=== PATIENT | male | born 1975 | race African-American/Black ===

== ENCOUNTER 2016-11-17 20:40 | Emergency (ER) | payer SELFPAY ==
[~2016-11-17] VITALS: Ht 180.3 cm; Wt 110.0 kg
[~2016-11-17 20:40] MED LIST: ALBU8I INH; PRED50TA PO
[2016-11-17 20:43] VITALS: BP 200/116; PULSE 81; RESP 20; TEMP 97.5; O2SAT 95
[2016-11-17 22:05] VITALS: BP 179/116; PULSE 73; RESP 20; O2SAT 98
[2016-11-17 22:10] VITALS: O2SAT 98
[2016-11-17] MEDS ORDERED: methylPREDNISolone SOD SUCC 125 MG/2 ML VIAL IVP ONE (22:30)
[2016-11-17] MEDS ORDERED: SODIUM CHLORIDE 0.9% FLUSH 5 ML FLUSH IVF PRN (22:30)
[2016-11-17] MEDS: RESP: ALBUTEROL 2.5 MG/IPRATROPIUM 0.5 MG NEB (SCH) INH ×2 (22:41→22:51)
[2016-11-17 22:46] LABS: AUTOMATED NEUTROPHIL # 4.1 TH/MM3 (1.8-7.7); BASOPHIL % 0.6 % (0.0-2.0); EOSINOPHIL # 0.4 TH/MM3 (0-0.4); EOSINOPHIL % 5.2 % (0.0-4.0); HEMATOCRIT 40.2 % (39.0-51.0); HEMO FLAGS DIFF FINAL; LYMPH % 31.6 % (9.0-44.0); LYMPHOCYTE # 2.3 TH/MM3 (1.0-4.8); MEAN CELL VOLUME 82.4 FL (80.0-100.0); MEAN CORPUSCULAR HEMOGLOBIN 28.1 PG (27.0-34.0); MEAN CORPUSCULAR HGB CONC 34.1 % (32.0-36.0); MONO % 7.2 % (0.0-8.0); NEUT % 55.4 % (16.0-70.0); PLATELET COUNT 229 TH/MM3 (150-450); RED BLOOD COUNT 4.88 MIL/MM3 (4.50-5.90); RED CELL DISTRIBUTION WIDTH 13.7 % (11.6-17.2); WHITE BLOOD COUNT 7.3 TH/MM3 (4.0-11.0)
--- NOTE | 2016-11-17 22:50 | RADRPT ---
EXAM DATE/TIME: 11/17/2016 22:28 [place] COMPARISON: CHEST SINGLE AP, January 07, 2016, 9:46. INDICATIONS : Chest pain, shortness of breath. MEDICAL HISTORY : Hypertension. Asthma, smoker. SURGICAL HISTORY : None. ENCOUNTER: Initial ACUITY: 4 - 6 days PAIN SCORE: 8/10 LOCATION: Left chest FINDINGS: A single view of the chest demonstrates minimal increased density at the right base. The left lung is clear. No effusion is seen. The cardiomediastinal contours are unremarkable. Osseous structures ar e intact. CONCLUSION: Suspected minimal consolidation or atelectasis at the right base. Carloz Garza MD on November 17, 2016 at 22:47 Board Certified Radiologist. This report was verified electronically.
[2016-11-17 22:58] LABS: ANION GAP 11 MEQ/L (5-15); BICARBONATE 24.1 MEQ/L (21.0-32.0); BLOOD UREA NITROGEN 20 MG/DL (7-18); CHLORIDE 102 MEQ/L (98-107); GLOMERULAR FILTRATION RATE 89 ML/MIN (>89); POTASSIUM 3.9 MEQ/L (3.5-5.1); SODIUM (NA) 137 MEQ/L (136-145)
[2016-11-17 23:00] LABS: APTT (PATIENT) 27.7 SEC (24.3-30.1); PROTHROMBIN TIME - PATIENT 10.7 SEC (9.8-11.6)
[2016-11-17 23:03] LABS: CREATINE KINASE 422 U/L (39-308)
[2016-11-17 23:15] LABS: CKMB 3.6 NG/ML (0.5-3.6)
--- NOTE | 2016-11-17 23:23 | PD ---
HPI Chief Complaint: Respiratory Symptoms Time Seen by Provider: 22:18 Travel History International Travel<30 days: No Contact w/Intl Traveler<30days: No Traveled to known affect area: No History of Present Illness HPI 41yo M with PMH of asthma and HTN presents to the ED with c/o sob for a few days. States he does not have his asthma pump at home and this feels like his asthma. +Cough. Denies any fever, chest pain, n/v, abdominal pain. Pt does not take any medication for his HTN as well and takes garlic pills at nutrition store for it. PFSH Past Medical History Asthma: Yes Diminished Hearing: No Hypertension: Yes Respiratory: Yes (ASTHMA) Immunizations Current: Yes Tetanus Vaccination: Never Vaccinated Influenza Vaccination: No Social History Alcohol Use: Yes (2 beers per day) Tobacco Use: Yes (1 PPD) Substance Use: No Allergies-Medications (Allergen,Severity, Reaction): Coded Allergies: No Known Allergies (Unverified , 11/17/16) Reported Meds & Prescriptions Reported Meds & Active Scripts Active Amlodipine (Amlodipine Besylate) 10 Mg Tab 10 Mg PO DAILY 14 Days Zithromax Z-Miguel (Azithromycin) 250 Mg Dspk 250 Mg PO DIRECTED 500 MG (2 tabs) day 1, then 1 tab days 2-5. Ventolin Hfa 18 GM Inh (Albuterol Sulfate) 90 Mcg/Act Aer 2 Puff INH Q4H PRN Prednisone 20 Mg Tab 20 Mg PO BID 5 Days Review of Systems Except as stated in HPI: all other systems reviewed are Neg Physical Exam Narrative GENERAL: 41yo M not in distress. SKIN: Warm and dry. HEAD: Atraumatic. Normocephalic. EYES: Pupils equal and round. No scleral icterus. No injection or drainage. ENT: No nasal bleeding or discharge. Mucous membranes pink and moist. NECK: Trachea midline. No JVD. CARDIOVASCULAR: Regular rate and rhythm. No murmur appreciated. RESPIRATORY: No accessory muscle use. End expiratory wheezing right lower lobe. GASTROINTESTINAL: Abdomen soft, non-tender, nondistended. Hepatic and splenic margins not palpable. MUSCULOSKELETAL: No obvious deformities. No clubbing. No cyanosis. +Trace bilateral lower ext edema. NEUROLOGICAL: Awake and alert. No obvious cranial nerve deficits. Motor grossly within normal limits. Normal speech. PSYCHIATRIC: Appropriate mood and affect; insight and judgment normal. Data Data Last Documented VS Vital Signs Date Time Temp Pulse Resp B/P Pulse Ox O2 Delivery O2 Flow Rate FiO2 11/18/16 02:00 84 20 161/90 99 Room Air 11/17/16 22:10 2 11/17/16 20:43 97.5 Orders Complete Blood Count With Diff (11/17/16 22:19) Basic Metabolic Panel (Bmp) (11/17/16 22:19) D-Dimer (11/17/16 22:19) Act Partial Throm Time (Ptt) (11/17/16 22:19) Prothrombin Time / Inr (Pt) (11/17/16 22:19) Ckmb (Isoenzyme) Profile (11/17/16 22:19) Troponin I (11/17/16 22:19) Iv Access Insert/Monitor (11/17/16 22:19) Ecg Monitoring (11/17/16 22:19) Oximetry (11/17/16 22:19) Oxygen Administration (11/17/16 22:19) Chest, Single Ap (11/17/16 22:19) Sodium Chloride 0.9% Flush (Ns Flush) (11/17/16 22:30) Methylprednisolone So Succ Inj (Solumedr (11/17/16 22:30) Albuterol-Ipratropium Neb (Duoneb Neb) (11/17/16 22:30) CKMB (11/17/16 22:10) CKMB% (11/17/16 22:10) Hydralazine Inj (Apresoline Inj) (11/18/16 00:30) Clonidine (Catapres) (11/18/16 01:15) Hydralazine Inj (Apresoline Inj) (11/18/16 02:00) Clonidine (Catapres) (11/18/16 02:00) Electrocardiogram (11/18/16 22:06) Labs Laboratory Tests Test 11/17/16 22:10 White Blood Count 7.3 TH/MM3 Red Blood Count 4.88 MIL/MM3 Hemoglobin 13.7 GM/DL Hematocrit 40.2 % Mean Corpuscular Volume 82.4 FL Mean Corpuscular Hemoglobin 28.1 PG Mean Corpuscular Hemoglobin 34.1 % Concent Red Cell Distribution Width 13.7 % Platelet Count 229 TH/MM3 Mean Platelet Volume 8.2 FL Neutrophils (%) (Auto) 55.4 % Lymphocytes (%) (Auto) 31.6 % Monocytes (%) (Auto) 7.2 % Eosinophils (%) (Auto) 5.2 % Basophils (%) (Auto) 0.6 % Neutrophils # (Auto) 4.1 TH/MM3 Lymphocytes # (Auto) 2.3 TH/MM3 Monocytes # (Auto) 0.5 TH/MM3 Eosinophils # (Auto) 0.4 TH/MM3 Basophils # (Auto) 0.0 TH/MM3 CBC Comment DIFF FINAL Differential Comment Prothrombin Time 10.7 SEC Prothromb Time International 1.0 RATIO Ratio Activated Partial 27.7 SEC Thromboplast Time D-Dimer Quantitative (PE/DVT) 0.48 MG/L FEU Sodium Level 137 MEQ/L Potassium Level 3.9 MEQ/L Chloride Level 102 MEQ/L Carbon Dioxide Level 24.1 MEQ/L Anion Gap 11 MEQ/L Blood Urea Nitrogen 20 MG/DL Creatinine 1.11 MG/DL Estimat Glomerular Filtration 89 ML/MIN Rate Random Glucose 75 MG/DL Calcium Level 8.7 MG/DL Total Creatine Kinase 422 U/L Creatine Kinase MB 3.6 NG/ML Creatine Kinase MB % 0.9 % Troponin I LESS THAN 0.02 NG/ML MDM Medical Decision Making Medical Screen Exam Complete: Yes Emergency Medical Condition: Yes Interpretation(s) EKG: NSR 70bpm with borderline first degree AV block. No signs of ischemia. Laboratory Tests Test 11/17/16 22:10 White Blood Count 7.3 TH/MM3 (4.0-11.0) Red Blood Count 4.88 MIL/MM3 (4.50-5.90) Hemoglobin 13.7 GM/DL (13.0-17.0) Hematocrit 40.2 % (39.0-51.0) Mean Corpuscular Volume 82.4 FL (80.0-100.0) Mean Corpuscular Hemoglobin 28.1 PG (27.0-34.0) Mean Corpuscular Hemoglobin 34.1 % Concent (32.0-36.0) Red Cell Distribution Width 13.7 % (11.6-17.2) Platelet Count 229 TH/MM3 (150-450) Mean Platelet Volume 8.2 FL (7.0-11.0) Neutrophils (%) (Auto) 55.4 % (16.0-70.0) Lymphocytes (%) (Auto) 31.6 % (9.0-44.0) Monocytes (%) (Auto) 7.2 % (0.0-8.0) Eosinophils (%) (Auto) 5.2 % (0.0-4.0) Basophils (%) (Auto) 0.6 % (0.0-2.0) Neutrophils # (Auto) 4.1 TH/MM3 (1.8-7.7) Lymphocytes # (Auto) 2.3 TH/MM3 (1.0-4.8) Monocytes # (Auto) 0.5 TH/MM3 (0-0.9) Eosinophils # (Auto) 0.4 TH/MM3 (0-0.4) Basophils # (Auto) 0.0 TH/MM3 (0-0.2) CBC Comment DIFF FINAL Differential Comment Prothrombin Time 10.7 SEC (9.8-11.6) Prothromb Time International 1.0 RATIO Ratio Activated Partial 27.7 SEC Thromboplast Time (24.3-30.1) D-Dimer Quantitative (PE/DVT) 0.48 MG/L FEU (0.00-0.50) Sodium Level 137 MEQ/L (136-145) Potassium Level 3.9 MEQ/L (3.5-5.1) Chloride Level 102 MEQ/L (98-107) Carbon Dioxide Level 24.1 MEQ/L (21.0-32.0) Anion Gap 11 MEQ/L (5-15) Blood Urea Nitrogen 20 MG/DL (7-18) Creatinine 1.11 MG/DL (0.60-1.30) Estimat Glomerular Filtration 89 ML/MIN (>89) Rate Random Glucose 75 MG/DL (74-106) Calcium Level 8.7 MG/DL (8.5-10.1) Total Creatine Kinase 422 U/L (39-308) Creatine Kinase MB 3.6 NG/ML (0.5-3.6) Creatine Kinase MB % 0.9 % (0.0-4.0) Troponin I LESS THAN 0.02 NG/ML (0.02-0.05) Last Impressions Chest X-Ray 11/17/16 5256 Signed Impressions: Service Date/Time: Thursday, November 17, 2016 22:28 - CONCLUSION: Suspected minimal consolidation or atelectasis at the right base. Carloz Garza MD Differential Diagnosis Asthma exacerbation vs. PNA vs. Bronchitis vs. PE (low suspicion, will r/o with D-dimer) Narrative Course 41yo M with asthma here with sob for a few days. States he was wheezing at home and ran out of his pump. States his baby is also sick. Pt is a well appearing 41yo M with mild end expiratory wheezing in right lower lung. Pt does have history of elevated blood pressure but does not take any actual antihypertensives. Will give hydralazine 10mg IV. Labs reviewed, no leukocytosis. Troponin negative. D-dimer negative, r/o PE. CXR showed minimal consolidation or atelectasis at right base. Will give azithromycin prescription. Pt given duonebs and methylprednisolone 125mg IV and feels better. Diagnosis Primary Impression: Asthma exacerbation Additional Impression: Elevated blood pressure reading Patient Instructions: General Instructions Departure Forms: Tests/Procedures Additional Instructions: Please follow up with PMD in 3-7 days for your elevated blood pressure and your asthma. Return to the ED if symptoms worsen. Med/Other Pt SpecificInfo: Prescription(s) given Scripts Amlodipine 10 Mg Tab10 Mg PO DAILY 14 Days Ref 0 Prov:Tanya Craft DO 11/18/16 Azithromycin (Zithromax Z-Miguel)250 Mg [id number] Mg PO DIRECTED #1 DSPK Ref 0 500 MG (2 tabs) day 1, then 1 tab days 2-5. Prov:Tanya Craft DO 11/18/16 Albuterol 18 GM Inh (Ventolin Hfa 18 GM Inh)90 Mcg/Act Aer2 Puff INH Q4H PRN ( SHORTNESS OF BREATH) #1 INHALER Ref 0 Prov:Tanya Craft DO 11/18/16 Prednisone 20 Mg Tab20 Mg PO BID 5 Days Ref 0 Prov:Tanya Craft DO 11/18/16 Disposition: 01 DISCHARGE HOME Condition: Stable Tanya Craft DO Nov 17, 2016 23:23
[2016-11-18] MEDS ORDERED: hydrALAZINE HCL 20 MG/ML VIAL IV PUSH ONE ×2 (00:30→02:00)
[2016-11-18] MEDS ORDERED: VENTAER INH (00:36)
[2016-11-18] MEDS ORDERED: PRED20 PO (00:36)
[2016-11-18] MEDS ORDERED: LISI10TA3 PO (00:36)
[2016-11-18] MEDS ORDERED: ZITHTAB PO (00:36)
[2016-11-18 01:00] VITALS: BP 174/119; PULSE 85; RESP 20; O2SAT 99
[2016-11-18] MEDS ORDERED: AMLO10TA2 PO (01:12)
[2016-11-18] MEDS ORDERED: cloNIDine HCL 0.1 MG TAB PO ONE ×2 (01:15→02:00)
[2016-11-18 02:00] VITALS: BP 161/90; PULSE 84; RESP 20; O2SAT 99
--- NOTE | 2016-11-18 16:01 | EKG ---
Date Performed: 11/17/2016 Time Performed: 22:06:54 PTAGE: 41 years EKG: Sinus rhythm WITH FIRST DEGREE AV BLOCK Compared to prior tracing no significant change ABNORMAL ECG NO PREVIOUS TRACING DOCTOR: Nicolas Avila Interpretating Date/Time 11/18/2016 15:57:16
== END 2016-11-18 02:00 | disposition home or self-care (01) ==
LOC: NEPA 20:40
DX: J45.901 Unspecified asthma with (acute) exacerbation (principal); R03.0 Elevated blood-pressure reading, without diagnosis of hypertension; R94.31 Abnormal electrocardiogram [ECG] [EKG]; R05 Cough; I10 Essential (primary) hypertension; F17.210 Nicotine dependence, cigarettes, uncomplicated
CPT/HCPCS: 71010; 80048; 82550; 82552; 84484; 85025; 85379; 85610; 85730; 93005; 94640; 94664; 96374; 96375; 99283; J0360; J2930

== ENCOUNTER 2017-01-14 15:21 | Emergency (ER) | payer SELFPAY ==
[~2017-01-14] VITALS: Ht 180.3 cm; Wt 110.0 kg
[~2017-01-14 15:21] MED LIST changes: -ALBU8I INH; +AMLO10TA2 PO; +PRED20 PO; -PRED50TA PO; +VENTAER INH; +ZITHTAB PO
[2017-01-14 15:23] VITALS: BP 162/93; PULSE 80; RESP 15; TEMP 97.9; O2SAT 96
--- NOTE | 2017-01-14 15:46 | PD ---
Physical Exam Date Seen by Provider: Jan 14, 2017 Time Seen by Provider: 15:41 Narrative Patient seen in triage for Skin Lesion on Right dorsal proximal forearm for the past 14 days. Patient states it started as a pimple and has gotten bigger and bigger. Patient states he has "drained" it twice himself, but it comes back. Patient has no Hx. MRSA. Patient denies Fever or chills. Vital Signs Stable. Patient awaiting bed placement. Data Data Last Documented VS Vital Signs Date Time Temp Pulse Resp B/P Pulse Ox O2 Delivery O2 Flow Rate FiO2 01/14/17 15:23 97.9 80 15 162/93 96 MDM Medical Record Reviewed: Yes Supervised Visit with SYDNEY: Yes Condition: Stable Teofilo Blanton Jan 14, 2017 15:46
[2017-01-14] MEDS ORDERED: IBUP800T23 PO (16:18)
[2017-01-14] MEDS ORDERED: CEPH-460 PO (16:18)
[2017-01-14] MEDS ORDERED: BACT800T5 PO (16:18)
--- NOTE | 2017-01-14 16:18 | PD ---
HPI Chief Complaint: Skin Problem Time Seen by Provider: 16:16 Travel History International Travel<30 days: No Contact w/Intl Traveler<30days: No Traveled to known affect area: No History of Present Illness HPI 41-year-old male presents to the emergency Department with complaint of an abscess to his right forearm that has been there for about 2 weeks. He said it has been draining purulent drainage but it has not gone away completely. He denies paresthesias, loss of sensation, decreased range of motion, decreased strength to the affected extremity. Denies fever, chills, nausea, vomiting. Has not taken any medications to alleviate his symptoms. Has squeezed it to get drainage to come out. No known allergies. No other modifying factors or associated signs and symptoms. PFSH Past Medical History Asthma: Yes Diminished Hearing: No Hypertension: Yes Respiratory: Yes (ASTHMA) Immunizations Current: Yes Social History Alcohol Use: Yes (2 beers per day) Tobacco Use: Yes (1 PPD) Substance Use: No Allergies-Medications (Allergen,Severity, Reaction): Coded Allergies: No Known Allergies (Unverified , 11/17/16) Reported Meds & Prescriptions Reported Meds & Active Scripts Active Ibuprofen 800 Mg Tab 800 Mg PO Q6HR PRN Bactrim DS (Sulfamethoxazole-Trimethoprim) 800-160 Mg Tab 1 Tab PO BID 10 Days Keflex (Cephalexin) 500 Mg Cap 500 Mg PO Q6H 10 Days Amlodipine (Amlodipine Besylate) 10 Mg Tab 10 Mg PO DAILY 14 Days Zithromax Z-Miguel (Azithromycin) 250 Mg Dspk 250 Mg PO DIRECTED 500 MG (2 tabs) day 1, then 1 tab days 2-5. Ventolin Hfa 18 GM Inh (Albuterol Sulfate) 90 Mcg/Act Aer 2 Puff INH Q4H PRN Prednisone 20 Mg Tab 20 Mg PO BID 5 Days Review of Systems Except as stated in HPI: all other systems reviewed are Neg Physical Exam Narrative GENERAL: Well-nourished, well-developed patient, in no acute distress; afebrile , nontoxic-appearing SKIN: There is an indurated area to the right proximal forearm which measures about 1.5 cm in diameter. It is fluctuant and there is pointing [place] and drainage. There is a zone of inflammation around it but no lymphangitis. Right upper extremity supple and non-tense with 2+ radial pulses and sensory intact and without erythema or edema. HEAD: Atraumatic. Normocephalic. EYES: Pupils equal and round. No scleral icterus. No injection or drainage. ENT: Mucosa pink and moist. Airway patent. NECK: Trachea midline. CARDIOVASCULAR: Regular rate. RESPIRATORY: No accessory muscle use. GASTROINTESTINAL: Rounded. MUSCULOSKELETAL: No obvious deformities. No clubbing. No cyanosis. No edema. NEUROLOGICAL: Awake and alert. Oriented 3. No obvious cranial nerve deficits. Motor grossly within normal limits. Normal speech. PSYCHIATRIC: Appropriate mood and affect; insight and judgment normal. Data Data Last Documented VS Vital Signs Date Time Temp Pulse Resp B/P Pulse Ox O2 Delivery O2 Flow Rate FiO2 01/14/17 15:23 97.9 80 15 162/93 96 Orders Wound Culture And Gram Stain (01/14/17 16:18) [facility] Medical Decision Making Medical Screen Exam Complete: Yes Emergency Medical Condition: Yes Medical Record Reviewed: Yes Differential Diagnosis Cellulitis, folliculitis, abscess Narrative Course 41-year-old male with an abscess that is draining purulent drainage to his right proximal forearm. Wound culture pending. Patient is afebrile and nontoxic-appearing. He denies fever, chills, nausea, vomiting. Is up-to-date on his tetanus vaccination. Abscess squeezed and drained in the ER. Bactrim, Keflex, ibuprofen prescribed for home. Diagnosis Primary Impression: Abscess of right forearm Referrals: Primary Care Physician Patient Instructions: Abscess (ED), Abscess Follow-up (ED), General Instructions Departure Forms: Tests/Procedures, Work Release Enter return to work date: Jan 15, 2017 Additional Instructions: Complete full course of antibiotics Warm compresses to the affected area Keep area clean and dry Ibuprofen or Tylenol as directed and as needed for pain and inflammation Follow-up with primary care provider Return to emergency department immediately with worsening of symptoms Med/Other Pt SpecificInfo: Prescription(s) given Scripts Ibuprofen 800 Mg [id number] Mg PO Q6HR PRN (PAIN) #30 TAB Ref 0 Prov:Jerica Olivares GRAPPLE SKIDDER OPERATOR 01/14/17 Sulfamethoxazole-Trimethoprim (Bactrim DS)800-160 Mg Tab1 Tab PO BID 10 Days Ref 0 Prov:Jerica Olivares GRAPPLE SKIDDER OPERATOR 01/14/17 Cephalexin (Keflex)500 Mg [id number] Mg PO Q6H 10 Days Ref 0 Prov:Jerica Olivares 01/14/17 Disposition: 01 DISCHARGE HOME Condition: Stable Jerica Olivares Jan 14, 2017 16:18
== END 2017-01-14 17:57 | disposition home or self-care (01) ==
LOC: NETRI 15:21
DX: L02.413 Cutaneous abscess of right upper limb (principal); I10 Essential (primary) hypertension; F17.210 Nicotine dependence, cigarettes, uncomplicated
CPT/HCPCS: 86403; 87070; 87186; 99283

== ENCOUNTER 2017-01-24 22:15 | Emergency (ER) | payer SELFPAY ==
[~2017-01-24] VITALS: Ht 180.3 cm; Wt 110.0 kg
[~2017-01-24 22:15] MED LIST changes: +BACT800T5 PO; +CEPH-460 PO; +IBUP800T23 PO
[2017-01-24 22:20] VITALS: BP 181/113; PULSE 82; RESP 16; TEMP 99.1; O2SAT 95
[2017-01-25] MEDS ORDERED: VENTAER INH (00:26)
[2017-01-25] MEDS ORDERED: PRED20 PO (00:26)
--- NOTE | 2017-01-25 00:29 | PD ---
HPI Chief Complaint: Respiratory Symptoms Time Seen by Provider: 00:20 Travel History International Travel<30 days: No Contact w/Intl Traveler<30days: No Traveled to known affect area: No History of Present Illness HPI 41-year-old male with history of asthma presents for evaluation of an asthma exacerbation. Symptoms started 2 days ago. He reports wheezing, cough with clear colored sputum. He reports that he typically uses his albuterol inhaler when he has asthma exacerbations but he is about to run out and this prompted evaluation. He denies any fevers or chills, rash or recent travel, no sick contacts. He reports that he moved here from [facility] 2 years ago, he feels that the humidity in the air has caused him to have more frequent asthma exacerbations. PFSH Past Medical History Asthma: Yes Diminished Hearing: No Hypertension: Yes Respiratory: Yes (ASTHMA) Immunizations Current: Yes Past Surgical History Surgical History: No Previous Surgery Social History Alcohol Use: Yes (6PACK DAILY) Tobacco Use: Yes (5 CIGS DAILY) Substance Use: No Allergies-Medications (Allergen,Severity, Reaction): Coded Allergies: *MDRO Multi-Drug Resistant Organism (Verified Adverse Reaction, Unknown, ) MRSA (arm wound) - 01/14/17 Reported Meds & Prescriptions Reported Meds & Active Scripts Active Prednisone 20 Mg Tab 20 Mg PO BID 5 Days Ventolin Hfa 18 GM Inh (Albuterol Sulfate) 90 Mcg/Act Aer 2 Puff INH Q4H PRN Ibuprofen 800 Mg Tab 800 Mg PO Q6HR PRN Bactrim DS (Sulfamethoxazole-Trimethoprim) 800-160 Mg Tab 1 Tab PO BID 10 Days Keflex (Cephalexin) 500 Mg Cap 500 Mg PO Q6H 10 Days Amlodipine (Amlodipine Besylate) 10 Mg Tab 10 Mg PO DAILY 14 Days Zithromax Z-Miguel (Azithromycin) 250 Mg Dspk 250 Mg PO DIRECTED 500 MG (2 tabs) day 1, then 1 tab days 2-5. Prednisone 20 Mg Tab 20 Mg PO BID 5 Days Review of Systems Except as stated in HPI: all other systems reviewed are Neg Physical Exam Narrative GENERAL: Well-developed well-nourished male in no acute distress SKIN: Warm and dry. HEAD: Atraumatic. Normocephalic. EYES: Pupils equal and round. No scleral icterus. No injection or drainage. ENT: No nasal bleeding or discharge. Mucous membranes pink and moist. NECK: Trachea midline. No JVD. CARDIOVASCULAR: Regular rate and rhythm. No murmur appreciated. RESPIRATORY: No accessory muscle use. Scattered wheezing bilaterally with prolonged expiratory phase. No tachypnea. Speaks in complete and clear sentences. Data Data Last Documented VS Vital Signs Date Time Temp Pulse Resp B/P Pulse Ox O2 Delivery O2 Flow Rate FiO2 01/24/17 22:20 99.1 82 16 181/113 95 Room Air Orders Prednisone (Deltasone) (01/25/17 00:30) Albuterol-Ipratropium Neb (Duoneb Neb) (01/25/17 00:30) [facility] Medical Decision Making Medical Screen Exam Complete: Yes Emergency Medical Condition: Yes Medical Record Reviewed: Yes Differential Diagnosis Asthma exacerbation, bronchitis, pneumonia, reactive airway disease, spontaneous pneumothorax Narrative Course 41-year-old male with history of asthma presents with 2 days of wheezing and cough consistent with previous asthma exacerbations. Examination is consistent with a asthma exacerbation. He will be discharged with a refill of his albuterol inhaler as well as a short prescription of prednisone. He will be given DuoNeb therapy and prednisone. He is stable for discharge. Diagnosis Primary Impression: Asthma exacerbation Additional Instructions: Medication as prescribed. Avoid tobacco products. Establish care with primary care physician for follow-up purposes. Return for any emergent medical conditions. Med/Other Pt SpecificInfo: Prescription(s) given Scripts Prednisone 20 Mg Tab20 Mg PO BID 5 Days Ref 0 Prov:Nasrin Mosley MD 01/25/17 Albuterol 18 GM Inh (Ventolin Hfa 18 GM Inh)90 Mcg/Act Aer2 Puff INH Q4H PRN ( SHORTNESS OF BREATH) #1 INHALER Ref 0 Prov:Nasrin Mosley MD 01/25/17 Disposition: DISCHARGE HOME Condition: Stable Mahin Triana Jan 25, 2017 00:29
[2017-01-25] MEDS ORDERED: predniSONE 20 MG TAB PO ONE (00:30)
[2017-01-25] MEDS: RESP: ALBUTEROL 2.5 MG/IPRATROPIUM 0.5 MG NEB (SCH) INH ×3 (00:45→01:21)
[2017-01-25 01:23] VITALS: O2SAT 98
[2017-01-25] MEDS ORDERED: PSEUDOEPHEDRINE HCL 30 MG TAB PO ONE (02:00)
[2017-01-25] MEDS ORDERED: RESP: ALBUTEROL 2.5 MG/IPRATROPIUM 0.5 MG NEB (SCH) INH ONE (02:00)
== END 2017-01-25 03:48 | disposition home or self-care (01) ==
LOC: NEPK 22:15
DX: J45.901 Unspecified asthma with (acute) exacerbation (principal); J45.909 Unspecified asthma, uncomplicated; I10 Essential (primary) hypertension; F17.210 Nicotine dependence, cigarettes, uncomplicated; Z79.899 Other long term (current) drug therapy
CPT/HCPCS: 94640; 94664; 99283; J7512

== ENCOUNTER 2017-02-23 19:13 | Emergency (ER) | payer SELFPAY ==
[~2017-02-23] VITALS: Ht 180.3 cm; Wt 110.0 kg
[2017-02-23 19:16] VITALS: BP 168/100; PULSE 90; RESP 16; TEMP 98.5; O2SAT 97
--- NOTE | 2017-02-23 19:45 | PD ---
HPI Chief Complaint: Complaint Time Seen by Provider: 19:42 Travel History International Travel<30 days: No Contact w/Intl Traveler<30days: No Traveled to known affect area: No History of Present Illness HPI 41-year-old black male presents to emergency department for evaluation of any STD exposure. He states that he had unprotected intercourse with a female approximately 2 weeks ago. The patient states that he was informed that she had chlamydia and Trichomonas. He denies any urethral symptoms. No dysuria or frequency. No urethral discharge. No rashes or lesions. He does state that he has a few what he feels or skin tags on his perineum by the base of his penis. History Past Medical Histgory Medical History: Denies Significant Hx Tetanus Vaccination: Unknown Past Surgical History Surgical History: No Previous Surgery Social History Alcohol Use: Yes (6PACK DAILY) Tobacco Use: Yes (5 CIGS DAILY) Allergies-Medications (Allergen,Severity, Reaction): Coded Allergies: *MDRO Multi-Drug Resistant Organism (Verified Adverse Reaction, Unknown, ) MRSA (arm wound) - 01/14/17 Reported Meds & Prescriptions Reported Meds & Active Scripts Active Prednisone 20 Mg Tab 20 Mg PO BID 5 Days Ventolin Hfa 18 GM Inh (Albuterol Sulfate) 90 Mcg/Act Aer 2 Puff INH Q4H PRN Ibuprofen 800 Mg Tab 800 Mg PO Q6HR PRN Bactrim DS (Sulfamethoxazole-Trimethoprim) 800-160 Mg Tab 1 Tab PO BID 10 Days Keflex (Cephalexin) 500 Mg Cap 500 Mg PO Q6H 10 Days Amlodipine (Amlodipine Besylate) 10 Mg Tab 10 Mg PO DAILY 14 Days Zithromax Z-Miguel (Azithromycin) 250 Mg Dspk 250 Mg PO DIRECTED 500 MG (2 tabs) day 1, then 1 tab days 2-5. Prednisone 20 Mg Tab 20 Mg PO BID 5 Days Review of Systems Except as stated in HPI: all other systems reviewed are Neg Genitourinary: No: Urgency, Frequency, Dysuria, Nocturia, Hematuria, Discharge Musculoskeletal: No: Arthralgias, Pain Skin: Positive Rash Neurologic: No: Weakness, Dizziness Physical Exam Narrative GENERAL: This is a well-nourished, well-developed patient, in no apparent distress. SKIN: No rashes, ecchymoses or lesions. Warm and dry. HEAD: Atraumatic. Normocephalic. EYES: PERRL, EOMI, no discharge or injection. No scleral icterus. EARS: Clear NOSE: Nasal turbinates appear normal. THROAT: Mucosa pink and moist. Airway patent. NECK: Trachea midline. supple, moves head freely. LUNGS: Clear to auscultation. CV: Regular in rhythm. ABDOMEN: Soft nontender. EXT: No clubbing cyanosis or edema. GENITOURINARY: Circumcised. Testes descended bilaterally without evidence of rotation. No erythema. No urethral discharge. Patient does have a few warty- appearing lesions to the perineum just lateral left to the shaft of the penis. These are consistent with genital warts Data Data Last Documented VS Vital Signs Date Time Temp Pulse Resp B/P Pulse Ox O2 Delivery O2 Flow Rate FiO2 02/23/17 19:16 98.5 90 16 168/100 97 Room Air MDM Medical Screen Exam Complete: Yes Emergency Medical Condition: No Differential Diagnosis MDM: Moderate Differential diagnoses: Chlamydia, gonorrhea, syphilis, chancroid, hepatitis, HIV, herpes Narrative Course A medical screening exam was performed: At the time of evaluation the presenting medical condition was determined not to be of an emergent nature. The patient was given the option of receiving additional care, but declined. Patient was given options for additional community resources from which to obtain care. The Patient Has Been advised to seek medical attention for their presenting complaint. The patient has been advised to return to the ER at any time if an emergent condition develops. Primary Impression: Encounter for medical screening examination Condition: Gonzalez Thrasher February 23, 2017 19:45
== END 2017-02-23 19:50 | disposition left against medical advice (07) ==
LOC: NEPK 19:13
DX: Z20.2 Contact with and (suspected) exposure to infections with a predominantly sexual mode of transmission (principal); L91.8 Other hypertrophic disorders of the skin; Z72.0 Tobacco use
CPT/HCPCS: 99281